=== PATIENT | male | born 1995 | race Caucasian/White ===

== ENCOUNTER 2019-04-30 18:16 | Emergency (ER) | payer OTHER ==
[~2019-04-30] VITALS: Ht 175.3 cm; Wt 59.0 kg
[~2019-04-30 18:16] MED LIST: ACETAMINOPHEN-1 EAC1 PO; NAPROSYN500 MG PO; NOHOMEMEDICATIONS; NORCO 5-325 TA1 EAC1 PO; PREDNISONE 20 M20 M1 PO; SKELAXIN 800 M800 M1 PO
[2019-04-30] MEDS ORDERED: IBUPROFEN 800800 M1 PO (19:56)
[2019-04-30] MEDS ORDERED: PENICILLIN V P500 MG PO (19:56)
[2019-04-30] MEDS ORDERED: TYLENOL WITH CO1 TA1 PO (19:56)
[2019-04-30 20:11] VITALS: BP 121/80
== END 2019-04-30 20:11 | disposition home or self-care (01) ==
LOC: M.ERS 18:16
DX: K08.89 Other specified disorders of teeth and supporting structures (principal)

== ENCOUNTER 2020-01-13 12:45 | Emergency (ER) | payer OTHER ==
[~2020-01-13] VITALS: Ht 177.8 cm; Wt 62.6 kg
[~2020-01-13 12:45] MED LIST changes: +IBUPROFEN 800800 M1 PO; +PENICILLIN V P500 MG PO; +TYLENOL WITH CO1 TA1 PO
[2020-01-13 12:53] VITALS: BP 141/80
[2020-01-13] MEDS ORDERED: DIPHENHIST50 MG PO (13:00)
[2020-01-13] MEDS ORDERED: PREDNISONE 10 M10 M1 PO (13:00)
== END 2020-01-13 13:19 | disposition home or self-care (01) ==
LOC: M.ERS 12:45
DX: L25.9 Unspecified contact dermatitis, unspecified cause (principal)

== ENCOUNTER 2020-05-07 21:44 | Emergency (ER) | payer OTHER ==
[~2020-05-07] VITALS: Ht 177.8 cm; Wt 64.9 kg
[~2020-05-07 21:44] MED LIST changes: +DIPHENHIST50 MG PO; +PREDNISONE 10 M10 M1 PO
[2020-05-07] MEDS ORDERED: PENICILLIN V P500 MG PO (22:36)
[2020-05-07] MEDS ORDERED: ACETAMINOPHEN-1 EAC2 PO (22:36)
[2020-05-07] MEDS ORDERED: PERIDEX 0.12%473 M1 SWISH&SPIT (22:36)
[2020-05-07] MEDS ORDERED: IBUPROFEN 800800 MG PO (22:36)
[2020-05-07 22:57] VITALS: BP 129/75
== END 2020-05-07 22:57 | disposition home or self-care (01) ==
LOC: M.ERS 21:44
DX: A69.1 Other Vincent's infections (principal); K08.89 Other specified disorders of teeth and supporting structures